=== PATIENT | male | born 1970 | race Caucasian/White ===

== ENCOUNTER → 2017-01-18 | Day surgery (SDC) | payer BC ==
[~2017-01-18] VITALS: Ht 175.3 cm; Wt 88.6 kg
[~2017-01-18] MED LIST: BUDE1SUS8; LIDOCAINE HCL 2% 2 ML VIAL (20MG/ML) ONE; MIDAZOLAM HCL 1 MG/ML 2ML VIAL ONE; MULTTAB58 PO; PROPOFOL IV EMULSION 10 MG/ML 20 ML VIAL IV ONE; SODIUM CHLORIDE 0.9% 500ML 500 ML IV ONE
[2017-01-18 14:01] VITALS: Ht 175.3 cm; Wt 88.6 kg
[2017-01-18 14:11] VITALS: TEMP 36.7
--- NOTE | 2017-01-18 14:11 | Endo History and Physical ---
History & Physical Date of Service: Jan 18, 2017. Chief Complaint: SCREENING FAMILY HX COLON POLYPS Referring Physician: DR KAUR History of Present Illness 46 yo CM who presents for colonoscopy secondary to screening and family history of colon polyps. Past Medical History Kidney Disease Past Surgical History Hx Cardiac Surgery: No Hx Internal Defibrillator: No Hx Pacemaker: No Hx Abdominal Surgery: No Hx of Implantable Prosthesis: No Hx Post-Op Nausea and Vomiting: No Hx Cancer Surgery: No Hx Thoracic Surgery: No Hx Orthopedic: No Hx Urinary Tract Surgery: No Family History IBD Social History Smoking Status: Former Smoker Hx Substance Use: No Hx Alcohol Use: Yes (2 DRINKS EVERY OTHER DAY) Allergies Coded Allergies: No Known Allergies (Verified , 01/18/17) Current Medications Reported Home Medications Medications Dose Route/Sig Max Daily Dose Days Date Category Rhinocort Allergy (Budesonide (Nasal)) 32 Mcg/Act Nicole 01/18/17 Reported Multivitamin (Multiple Vitamin) 1 Tab Tab 1 Tab PO QAM 11/10/15 Reported Vital Signs Weight (Kilograms): 88.64 Height (Feet): 5 Height (Inches): 9 Physical Exam General Appearance: WD/WN, no apparent distress Respiratory/Chest: Auscultation: breath sounds normal Cardiovascular: Heart Auscultation: RRR Abdomen: Bowel Sounds: normal Inspection & Palpation: soft, non-distended, no tenderness, guarding & rebound Assessment and Plan Assessment: 46 yo CM who presents for colonoscopy secondary to screening and family history of colon polyps. Plan: Proceed with colonoscopy.
--- NOTE | 2017-01-18 16:07 | Discharge Instructions ---
Endoscopy Patient Instructions Date / Procedure(s) Performed Jan 18, 2017. Colonoscopy Allergy Information Coded Allergies: No Known Allergies (Verified , 01/18/17) Discharge Date / Findings Jan 18, 2017. Rectal polyp Internal hemorrhoids Medication Instructions OK to resume all medications today as prescribed Reported Home Medications Medications Dose Route/Sig Max Daily Dose Days Date Category Rhinocort Allergy (Budesonide (Nasal)) 32 Mcg/Act Nicole 01/18/17 Reported Multivitamin (Multiple Vitamin) 1 Tab Tab 1 Tab PO QAM 11/10/15 Reported Provider Instructions Activity Restrictions - No exercising or heavy lifting for 24 hours. - Do not drink alcohol the day of the procedure. - Do not drive a car or operate machinery until the day after the procedure. - Do not make any important decisions or sign important papers in 24 hours after the procedure. Following Day: - Return to full activity which may include returning to work/school. Diet Start your diet with liquids and light foods (jello, soup, juice, toast). Then eat your usual diet if not nauseated. Treatment For Common After Affects For mild abdominal pain, bloating, or excessive gas: - Rest - Eat lightly - Lie on right side Follow-Up Information Follow-up with DR KAUR as scheduled Anesthesia Information What You Should Know You have had a procedure that required some medicine to reduce anxiety and discomfort. This treatment is called moderate sedation. After receiving the treatment, you may be sleepy, but you will be able to breathe on your own. The effects of the treatment may last for several hours. Follow these instructions along with Activity/Diet recommendations noted above: * Do NOT do anything where dizziness or clumsiness would be dangerous. * Rest quietly at home today, then you can be up and about tomorrow. * Have a responsible person stay with you the rest of today. * You may have had an I.V. today. If so, you may take the dressing off later today. Recommendations Call your doctor if: * Trouble breathing * Continuous vomiting for more than 24 hours * Temperature above 101 degrees * Severe abdominal pain or bloating * Pain not relieved by pain medicine ordered * There is increased drainage or redness from any incision * A large amount of rectal bleeding greater than 2-3 tablespoons. (If you had a polyp/s removed or have hemorrhoids, a small amount of blood - from the rectum is to be expected.) * You have any unanswered questions or concerns. IN THE EVENT OF A SERIOUS EMERGENCY, GO TO THE NEAREST EMERGENCY ROOM Your discharge instructions were prepared by provider Edmund Mendenhall. Patient Instructions Signature Page Bry Jordan Patient (or Guardian) Signature/Date: I have read and understand the instructions given to me by my caregivers. Caregiver/RN/Doctor Signature/Date: The above-named patient and/or guardian has received patient instructions on this date. + Original Patient Signature Page (only) stays with chart. Please make copy for patient.
--- NOTE | 2017-01-18 16:14 | GI REPORT ---
Procedure Date: 01/18/2017 3:12 PM Procedure: Colonoscopy Indications: Screening for colorectal malignant neoplasm Medicines: Monitored Anesthesia Care Complications: No immediate complications. Estimated Blood Loss: Estimated blood loss: none. Procedure: Pre-Anesthesia Assessment: - Prior to the procedure, a History and Physical was performed, and patient medications and allergies were reviewed. The patient's tolerance of previous anesthesia was also reviewed. The risks and benefits of the procedure and the sedation options and risks were discussed with the patient. All questions were answered, and informed consent was obtained. Prior Anticoagulants: The patient has taken no previous anticoagulant or antiplatelet agents. ASA Grade Assessment: I - A normal, healthy patient. After reviewing the risks and benefits, the patient was deemed in satisfactory condition to undergo the procedure. After I obtained informed consent, the scope was passed under direct vision. Throughout the procedure, the patient's blood pressure, pulse, and oxygen saturations were monitored continuously. The On-site loaner was introduced through the anus and advanced to the terminal ileum. The colonoscopy was performed without difficulty. The patient tolerated the procedure well. The quality of the bowel preparation was good. The terminal ileum, ileocecal valve, appendiceal orifice, and rectum were photographed. Findings: A 8 mm polyp was found in the rectum. The polyp was sessile. The polyp was removed with a hot snare. Resection and retrieval were complete. Non-bleeding internal hemorrhoids were found during retroflexion. The hemorrhoids were small. Impression: - One 8 mm polyp in the rectum, removed with a hot snare. Resected and retrieved. - Non-bleeding internal hemorrhoids. Recommendation: - Resume previous diet. - Continue present medications. - Repeat colonoscopy for surveillance based on pathology results. - Return to primary care physician as previously scheduled. Edmund Mendenhall DO 01/18/2017 4:13:32 PM This report has been signed electronically. Note Initiated On: 01/18/2017 3:12 PM I attest to the content of the Intraoperative Record and orders documented therein, exceptions below
[2017-01-18 16:19] VITALS: BP 128/93; PULSE 77; O2SAT 99
--- NOTE | 2017-01-18 16:23 | Anesthesiology Progress Note ---
Anesthesia Post Op Note Date & Time Jan 18, 2017 at 16:23 Vital Signs Pain Intensity: 0 Vital Signs Past 12 Hours Date Time Temp Pulse Resp B/P Pulse Ox O2 Delivery O2 Flow Rate FiO2 01/18/17 16:04 86 18 130/94 97 Room Air 01/18/17 15:49 82 18 115/82 95 Room Air 01/18/17 14:11 36.7 72 18 144/80 96 Room Air Notes Mental Status: alert / awake / arousable, participated in evaluation Pt Amnestic to Procedure: Yes Nausea / Vomiting: adequately controlled Pain: adequately controlled Airway Patency, RR, SpO2: stable & adequate BP & HR: stable & adequate Hydration State: stable & adequate Anesthetic Complications: no major complications apparent
== END | disposition home or self-care (01) ==
LOC: C.GI 13:52
PROVIDERS: ATTEND Internal Medicine
DX: Z12.11 Encounter for screening for malignant neoplasm of colon (principal); Z83.71 Family history of colonic polyps; K64.8 Other hemorrhoids; D12.8 Benign neoplasm of rectum; Z87.891 Personal history of nicotine dependence

== ENCOUNTER 2017-08-20 12:02 | Emergency (ER) | payer BC ==
[~2017-08-20] VITALS: Ht 175.3 cm; Wt 90.0 kg
[~2017-08-20 12:02] MED LIST changes: -LIDOCAINE HCL 2% 2 ML VIAL (20MG/ML) ONE; -MIDAZOLAM HCL 1 MG/ML 2ML VIAL ONE; -PROPOFOL IV EMULSION 10 MG/ML 20 ML VIAL IV ONE; -SODIUM CHLORIDE 0.9% 500ML 500 ML IV ONE
[2017-08-20 12:16] VITALS: TEMP 36.9; Ht 175.3 cm; Wt 90.0 kg
[2017-08-20 12:30] VITALS: O2SAT 100
[2017-08-20 13:34] LABS: BASO % 0.3 %; BASO ABS # 0.02 K/uL (0-0.2); COMPLETE YES; EOS % 0.5 %; HEMATOCRIT 48.7 % (42-52); IG% 0.2 %; LYMPH % 32.2 %; LYMPH ABS # 2.04 K/uL (1.2-3.4); MEAN CELL VOLUME 93.5 fL (80-100); MEAN CORPUSCULAR HEMOGLOBIN 31.9 pg (25-34); MEAN CORPUSCULAR HGB CONC 34.1 g/dl (32-36); MEAN PLATELET VOLUME 9.6 fL (7.4-10.4); MONO % 9.8 %; PLATELET COUNT 241 K/uL (130-400); RED BLOOD COUNT 5.21 M/uL (4.7-6.1); WHITE BLOOD COUNT 6.34 K/uL (4.8-10.8)
--- NOTE | 2017-08-20 13:39 | DIAGNOSTIC IMAGING REPORT ---
CT SCAN OF THE BRAIN WITHOUT IV CONTRAST CLINICAL HISTORY: Visual disturbance. COMPARISON STUDY: No priors. TECHNIQUE: Unenhanced axial CT scan of the brain is performed from the vertex to the skull base. A dose lowering technique was utilized adhering to the principles of ALARA. CT DOSE: 537.48 mGy.cm FINDINGS: Brain parenchyma: The brain parenchyma is normal in appearance. There is no hemorrhage, mass effect, or evidence of acute territorial ischemia by CT criteria. Taylor-white matter is preserved. No extra-axial fluid collection is seen. Ventricles, sulci, cisterns: Normal in configuration. Intracranial vasculature: The visualized intracranial vasculature at the skull base is normal in appearance. Calvarium: Unremarkable. Sinuses and mastoids: The visualized paranasal sinuses are clear. The mastoid air cells are well pneumatized. Orbits: The bony orbits are grossly intact. IMPRESSION: No acute intracranial abnormality. Electronically signed by: Josemanuel Choudhary M.D. 08/20/2017 1:37 PM Dictated Date/Time: 08/20/2017 1:36 PM
[2017-08-20 13:45] LABS: PARTIAL THROMBOPLASTIN RATIO 1.1; PROTHROMBIN TIME (PATIENT) 11.2 SECONDS (9.0-12.0)
[2017-08-20 13:53] LABS: BLOOD UREA NITROGEN 16 mg/dl (7-18); BUN/CREATININE RATIO 17.5 (10-20); CALCIUM 9.3 mg/dl (8.5-10.1); CARBON DIOXIDE 29 mmol/L (21-32); CHLORIDE 101 mmol/L (98-107); CREATININE 0.93 mg/dl (0.60-1.40); GLUCOSE 83 mg/dl (70-99); POTASSIUM 3.7 mmol/L (3.5-5.1); SODIUM 137 mmol/L (136-145)
[2017-08-20 13:58] LABS: CKMB/CK RATIO 0.7 (0-3.0)
[2017-08-20 14:30] VITALS: BP 152/100; PULSE 80; O2SAT 100
--- NOTE | 2017-08-20 14:57 | EMERGENCY ROOM VISIT NOTE ---
History First contact with patient: 12:57 Chief Complaint: OTHER COMPLAINT Stated Complaint: TUNNEL VISION/STROBING History of Present Illness The patient is a 47 year old male who presents to the Emergency Room with complaints of episode of tunnel vision. The patient states that on 11:30 AM he opened the door to the outside and it was very juanito and he was not wearing sunglasses. The patient states that when he shut the door from looking outside his vision looked tunneled left greater than right and had a "stroking affect". He states this lasted no longer than 5 minutes. He states he felt a little dizzy but denies any associated headache or weakness or numbness of his extremities. The patient denies any chest pain or shortness of breath. He drank a glass of water and felt better. The patient states he wears contacts. The patient does have a history of elevated blood pressure but states he is not on any anti-hypertensive medication. He states he did not go get his cholesterol checked when his doctor recommended that he have it checked. The patient denies tobacco use. The patient denies any history of CAD or any family history of early onset of CAD. Review of Systems 10 system review was performed and was negative unless stated otherwise history of present illness. Past Medical/Surgical History Kidney stones Social History Smoking Status: Never Smoker Smokeless Tobacco Use: Yes Alcohol Use: occasionally Drug Use: none Marital Status: single Housing Status: lives alone Occupation Status: employed Current/Historical Medications No Active Prescriptions or Reported Meds Physical Exam Vital Signs Date Time Temp Pulse Resp B/P (MAP) Pulse Ox O2 Delivery O2 Flow Rate FiO2 08/20/17 14:30 80 16 152/100 100 Room Air 08/20/17 13:10 82 16 153/102 99 Room Air 08/20/17 12:31 94 08/20/17 12:30 100 Room Air 08/20/17 12:27 83 20 151/101 99 Room Air 93 154/108 98 163/112 08/20/17 12:16 36.9 90 18 169/113 100 Room Air Physical Exam GENERAL: 47-year-old white male appears in no acute distress. MENTAL Status: Alert and oriented 3. EYES: PERRLA. EOMs intact. EARS: Canals clear. TMs without fluid level noted. NECK: Supple, no lymphadenopathy noted. No carotid bruits noted. LUNGS: Clear auscultation without wheezes rales or rhonchi. CARDIAC: Regular rate and rhythm without murmur. Pulses is full and equal throughout. ABDOMEN: Positive bowel sounds all 4 quadrants. Soft, nontender to palpation without organomegaly or masses. NEURO:Cranial nerves two through 12 intact. Cerebellar function intact with [id number]. Fine motor intact with alternating finger motions. MUSCULAR skeletal: Muscle strength is 5 out of 5 bilateral upper and lower extremities and symmetrical. Medical Decision & Procedures ER Provider Diagnostic Interpretation: CT SCAN OF THE BRAIN WITHOUT IV CONTRAST CLINICAL HISTORY: Visual disturbance. COMPARISON STUDY: No priors. TECHNIQUE: Unenhanced axial CT scan of the brain is performed from the vertex to the skull base. A dose lowering technique was utilized adhering to the principles of ALARA. CT DOSE: 537.48 mGy.cm FINDINGS: Brain parenchyma: The brain parenchyma is normal in appearance. There is no hemorrhage, mass effect, or evidence of acute territorial ischemia by CT criteria. Taylor-white matter is preserved. No extra-axial fluid collection is seen. Ventricles, sulci, cisterns: Normal in configuration. Intracranial vasculature: The visualized intracranial vasculature at the skull base is normal in appearance. Calvarium: Unremarkable. Sinuses and mastoids: The visualized paranasal sinuses are clear. The mastoid air cells are well pneumatized. Orbits: The bony orbits are grossly intact. IMPRESSION: No acute intracranial abnormality. Electronically signed by: Josemanuel Choudhary M.D. 08/20/2017 1:37 PM Dictated Date/Time: 08/20/2017 1:36 PM Laboratory Results 08/20/17 13:10 Red Blood Count 5.21, Mean Corpuscular Volume 93.5, Mean Corpuscular Hemoglobin 31.9, Mean Corpuscular Hemoglobin Concent 34.1, Mean Platelet Volume 9.6, Neutrophils (%) (Auto) 57.0, Lymphocytes (%) (Auto) 32.2, Monocytes (%) (Auto) 9.8, Eosinophils (%) (Auto) 0.5, Basophils (%) (Auto) 0.3, Neutrophils # (Auto) 3.62, Lymphocytes # (Auto) 2.04, Monocytes # (Auto) 0.62, Eosinophils # (Auto) 0.03, Basophils # (Auto) 0.02 08/20/17 13:10 Test 08/20/17 12:17 08/20/17 13:10 Bedside Glucose 95 mg/dl (70-99) White Blood Count 6.34 K/uL (4.8-10.8) Red Blood Count 5.21 M/uL (4.7-6.1) Hemoglobin 16.6 g/dL (14.0-18.0) Hematocrit 48.7 % (42-52) Mean Corpuscular Volume 93.5 fL (80-100) Mean Corpuscular Hemoglobin 31.9 pg (25-34) Mean Corpuscular Hemoglobin Concent 34.1 g/dl (32-36) Platelet Count 241 K/uL (130-400) Mean Platelet Volume 9.6 fL (7.4-10.4) Neutrophils (%) (Auto) 57.0 % Lymphocytes (%) (Auto) 32.2 % Monocytes (%) (Auto) 9.8 % Eosinophils (%) (Auto) 0.5 % Basophils (%) (Auto) 0.3 % Neutrophils # (Auto) 3.62 K/uL (1.4-6.5) Lymphocytes # (Auto) 2.04 K/uL (1.2-3.4) Monocytes # (Auto) 0.62 K/uL (0.11-0.59) Eosinophils # (Auto) 0.03 K/uL (0-0.5) Basophils # (Auto) 0.02 K/uL (0-0.2) RDW Standard Deviation 45.3 fL (36.4-46.3) RDW Coefficient of Variation 13.2 % (11.5-14.5) Immature Granulocyte % (Auto) 0.2 % Immature Granulocyte # (Auto) 0.01 K/uL (0.00-0.02) Prothrombin Time 11.2 SECONDS (9.0-12.0) Prothromb Time International Ratio 1.0 (0.9-1.1) Activated Partial Thromboplast Time 27.6 SECONDS (21.0-31.0) Partial Thromboplastin Ratio 1.1 Anion Gap 7.0 mmol/L (3-11) Est Creatinine Clear Calc Drug Dose 107.8 ml/min Estimated GFR () 112.1 Estimated GFR (Non- 96.7 BUN/Creatinine Ratio 17.5 (10-20) Calcium Level 9.3 mg/dl (8.5-10.1) Total Creatine Kinase 135 U/L (39-308) Creatine Kinase MB 0.9 ng/ml (0.5-3.6) Creatine Kinase MB Ratio 0.7 (0-3.0) Troponin I < 0.015 ng/ml (0-0.045) Pro-B-Type Natriuretic Peptide 14 pg/ml (0-450) ED Course The patient was evaluated. IV access was obtained. The patient was placed on a monitor. The patient's blood pressure was elevated on arrival at 169/113. Glascow score was 15. CBC and differential, renal profile, LFTs and lipase levels were ordered. CK-MB, coags, troponin and BNP were ordered. EKG was ordered and interpreted by myself as above without any acute findings. CT of the head was ordered and interpreted by the radiologist as above without any acute findings. Labs are reviewed and were unremarkable. The patient's case was discussed withDr. Flores who agreed with treatment plan. I spoke with Dr. Lopez, ophthalmology about the patient's symptoms. He felt that this was an aura associated with a retinal migraine. He did not feel that this was of any major concern. The patient was informed. The patient was discharged home in stable condition. Medical Decision Differential diagnosis include migraine, TIA, stroke, optic neuritis Head Trauma GCS Score: 15 Medication Reconcilliation Current Medication List: was personally reviewed by me Blood Pressure Screening Patient's blood pressure: Elevated blood pressure Blood pressure disposition: Referred to PCP Impression Primary Impression: Retinal migraine Additional Impression: Elevated blood pressure reading Departure Information Dispostion Home / Self-Care Condition GOOD Prescriptions No Active Prescriptions or Reported Meds Referrals Jason Salguero M.D. (PCP) Forms HOME CARE DOCUMENTATION FORM, IMPORTANT VISIT INFORMATION, WORK / SCHOOL INSTRUCTIONS Patient Instructions ED Hypertension Poss, My [facility] Additional Instructions If you experience any severe headache, slurred speech, visual changes, muscle weakness return to ER immediately. Follow-up with your family doctor in 2 days for blood pressure recheck and cholesterol screening. Problem Qualifiers
== END 2017-08-20 15:29 | disposition home or self-care (01) ==
LOC: C.EDB 12:04
DX: G43.109 Migraine with aura, not intractable, without status migrainosus (principal); R03.0 Elevated blood-pressure reading, without diagnosis of hypertension; Z87.442 Personal history of urinary calculi

== ENCOUNTER → 2017-08-22 | Outpatient (CLI) | payer BC ==
[2017-08-22 17:09] LABS: CHOLESTEROL/HDL RATIO 3.5
== END | disposition home or self-care (01) ==
LOC: C.LABBFT 13:17
PROVIDERS: ATTEND Physician Assistant Medical
DX: Z13.6 Encounter for screening for cardiovascular disorders (principal)